=== PATIENT | female | born 1965 | race Caucasian/White ===

== ENCOUNTER 2023-04-12 10:17 | Inpatient (IN) ==
--- NOTE | 2023-03-28 12:41 | PAT Medication Instructions ---
Medication Instructions Date of Service March 28, 2023 Home Medications Cranberry 15,000 mg PO QAM acetaminophen 500 mg tablet 1,500 mg PO BID aspirin 81 mg capsule 81 mg PO QAM biotin 100 mg/gram oral powder 100 mg PO QAM evolocumab 140 mg/mL subcutaneous syringe (Repatha Syringe) 140 mg subcut MONTHLY gabapentin 300 mg capsule 300 mg PO TID mreajfqtieel-Sp-kgxh-minerals 18 mg-0.4 mg tablet 1 tab PO QAM pitavastatin calcium 2 mg tablet (Livalo) 2 mg PO QAM soy isoflavone-black cohosh root-magnolia bark 155 mg capsule (Estroven) 1 cap PO QAM tramadol 50 mg tablet 50 mg PO TID MEDICATION INSTRUCTIONS: ASK your prescriber and surgeon aspirin 81 mg capsule 81 mg PO QAM STOP taking 2 weeks before surgery soy isoflavone-black cohosh root-magnolia bark 155 mg capsule (Estroven) 1 cap PO QAM biotin 100 mg/gram oral powder 100 mg PO QAM Cranberry 15,000 mg PO QAM DO NOT take the morning of surgery qurdyjuvygcm-Dv-kumt-minerals 18 mg-0.4 mg tablet 1 tab PO QAM Take morning of surgery With a small sip of water, OTHERWISE NOTHING TO EAT OR DRINK AFTER MIDNIGHT: gabapentin 300 mg capsule 300 mg PO TID acetaminophen 500 mg tablet 1,500 mg PO BID tramadol 50 mg tablet 50 mg PO TID pitavastatin calcium 2 mg tablet (Livalo) 2 mg PO QAM Take evening before surgery gabapentin 300 mg capsule 300 mg PO TID acetaminophen 500 mg tablet 1,500 mg PO BID tramadol 50 mg tablet 50 mg PO TID Other Notes Check with prescriber for instructions: evolocumab 140 mg/mL subcutaneous syringe (Repatha Syringe) 140 mg subcut MONTHLY If you have any questions please call us at [phone] or [phone] or [phone] or [phone]
--- NOTE | 2023-03-31 14:54 | Anesthesiology Consultation ---
Date of Service March 31, 2023 Assessment & Plan (1) Encounter for pre-operative examination: - Infectious disease screening: Per assessment on 03/31/23: No known infectious disease contacts or current infectious disease symptoms. No noted Covid positive test result in past 90 days. - Check BSG AM DOS (preop labs note elevated glucose at 162. No reported hx of diabetes or prediabetes. Will recheck level DOS) Chart Review Chart Review: Acceptable Risk for Surgery and Patient NOT seen in Pre Admission Testing Teaching & Discussion Pre-Anesthesia Teaching/Discussion Notes: Instructed NPO after midnight before surgery,except medications with 15 cc of water. Medication instructions provided according to the PAT guidelines. History Surgery Operation Date: 04/14/23 10:05 Proposed Procedures p L3-L5 Decompression and Fusion, Spinal Cord Monitoring - Florentino Blackburn DO Height/Weight Height: 5 ft 2 in Weight: 82.5 kg Allergies Allergy/AdvReac Type Severity Reaction Status Date / Time doxycycline Allergy Intermediate Headache, Verified 03/29/23 11:42 joint swelling, lightheaded hydrocodone AdvReac Severe Nightmare, Verified 03/23/23 14:33 [From Lorcet (hydrocodone)] sick to stomach metronidazole [From Flagyl] AdvReac Mild Sick to Verified 03/29/23 11:42 stomach, body ache nitrofurantoin AdvReac Mild Sick to Verified 03/29/23 11:42 [From Macrobid] stomach, body ache Medications Home Medications Medication Instructions Recorded Confirmed Last Taken Cranberry 15,000 mg PO QAM 03/23/23 03/23/23 Unknown acetaminophen 500 mg tablet 1,500 mg PO BID 03/23/23 03/23/23 Unknown aspirin 81 mg capsule 81 mg PO QAM 03/23/23 03/23/23 Unknown biotin 100 mg/gram oral powder 100 mg PO QAM 03/23/23 03/23/23 Unknown evolocumab 140 mg/mL subcutaneous 140 mg subcut MONTHLY 03/23/23 03/23/23 Unknown syringe (Repatha Syringe) gabapentin 300 mg capsule 300 mg PO TID 03/23/23 03/23/23 Unknown dqfqbdrlzbul-Pb-ptlq-minerals 18 1 tab PO QAM 03/23/23 03/23/23 Unknown mg-0.4 mg tablet pitavastatin calcium 2 mg tablet 2 mg PO QAM 03/23/23 03/23/23 Unknown (Livalo) soy isoflavone-black cohosh 1 cap PO QAM 03/23/23 03/23/23 Unknown root-magnolia bark 155 mg capsule (Estroven) tramadol 50 mg tablet 50 mg PO TID 03/23/23 03/23/23 Unknown Past Medical History Medical History Chronic back pain Hyperlipidemia Solitary kidney, acquired Exercise / Class Metabolic Activity II 4-5 Yardwork/Stairs/Walk up hill Past Family History Family History Other No family history of adverse response to anesthesia Past Surgical History Surgical History History of bilateral breast reduction surgery 1984 History of carpal tunnel surgery of left wrist 2004 History of carpal tunnel surgery of right wrist 2011 History of cholecystectomy History of colonoscopy History of hysterectomy with bilateral oophorectomy History of kidney removal 2011 (donated left kidney to brother) History of ovarian cystectomy History of wisdom tooth extraction Past Anesthesia History No Hx of Anesthesia Complications and No Family Hx of Anesthesia Complications History of PONV No Hx of PONV and No Hx of Motion Sickness Social History Smoking Status: Former smoker Do You Dip or Chew Tobacco: No Smoking End Date: Quit 02/05/23 Hx Alcohol Use: Yes Alcohol type: beer alcohol intake frequency: a few times a month Hx Substance Use: No substance use type: does not use Review of Systems Patient denies chest pain, shortness of breath, dyspnea on exertion, fever, chills, cough, wheezing, palpitations. Physical Exam Vital Signs VITALS BP 151/83 P 81 TEMP 97.8 SP02 97%RA RESP 18 PHYSICAL Full cervical extension range of motion. Full TMJ range of motion. TMD 3 finger breaths Mallampati Score 2 Lungs: clear throughout to auscultation Cardiac: regular rate and rhythm, no murmurs noted Spine: normal Carotid arteries: negative bruit Extremities: no LE edema Lab Results Anesthesia Preop Results Results Anesthesia Widget: WBC 10.15 K/ul (4.8-10.8) 03/31/23 Hgb 12.6 g/dl (12.0-16.0) 03/31/23 Hct 36.8 % (37.0-47.0) L 03/31/23 Plt 265 K/uL (130-400) 03/31/23 Na 138 mmol/L (136-145) 03/31/23 K 4.0 mmol/L (3.5-5.1) 03/31/23 Cl 102 mmol/L (98-107) 03/31/23 CO2 30 mmol/L (21-32) 03/31/23 BUN 24 mg/dl (6-23) H 03/31/23 Creat 1.10 mg/dl (0.6-1.2) 03/31/23 Glucose Level 162 mg/dl (70-99(Fasting)) H 03/31/23 PT 9.9 Seconds (9.0-12.0) 03/31/23 PTT 26.5 Seconds (21.0-31.0) 03/31/23 INR 0.9 (0.9-1.1) 03/31/23 Urine Color Yellow 03/31/23 Urine Appearance Clear (Clear) 03/31/23 Urine pH 7.0 (4.5-7.5) 03/31/23 Urine Specific Weinert 1.008 (1.000-1.030) 03/31/23 Urine Protein Negative (Negative) 03/31/23 Urine Glucose (UA) Negative (Negative) 03/31/23 Urine Ketones Negative (Negative) 03/31/23 Urine Blood Negative (Negative) 03/31/23 Urine Nitrite Negative (Negative) 03/31/23 Urine Bilirubin Negative (Negative) 03/31/23 Urine Urobilinogen Negative (Negative) 03/31/23 Urine Leukocyte Esterase Negative (Negative) 03/31/23 Blood Type A Positive 03/31/23 Antibody Screen NEGATIVE 03/31/23 Testing Electrocardiogram Date: 03/31/23 NSr at 72bpm. LAD. Chest X-Ray Date: 03/31/23 FINDINGS: No lines and tubes are seen. Calcified aortic knob is seen. The lungs are clear. No evidence of pleural effusion or pneumothorax. IMPRESSION: No acute chest disease.
[~2023-04-12 10:17] MED LIST: ACETAMINOPHEN 500 MG TAB PO SCH; CeleBREX 200 MG CAP PO SCH; GABAPENTIN 600 MG DOSE PO SCH; LR 15ML/HR IV SCH; LR 60ML/HR IV SCH; ceFAZolin 2000MG 2,000 MG/15 ML SYR IV SCH
--- NOTE | 2023-04-12 11:30 | History & Physical Bridge Note ---
Date of Service April 12, 2023 History & Physical Bridge Note I have examined the patient, reviewed the History & Physical and in the interval since the performance of the History & Physical I have noted the following changes of clinical significance: no changes noted
--- NOTE | 2023-04-12 11:33 | History & Physical Report ---
Date of Service April 12, 2023 Assessment & Plan (1) Neurogenic claudication due to lumbar spinal stenosis: Plan: L3 L5 decompression and fusion History of Present Illness Chief Complaint: Back and bilateral leg pain Primary Care Provider: Rajinder Bethea This is a 57-year-old female who presents with chronic persistent back and leg pain after failing course of nonoperative care she is here for surgical invention. Allergies Allergy/AdvReac Type Severity Reaction Status Date / Time doxycycline Allergy Intermediate Headache, Verified 04/12/23 10:39 joint swelling, lightheaded hydrocodone AdvReac Severe Nightmare, Verified 04/12/23 10:39 [From Lorcet (hydrocodone)] sick to stomach metronidazole [From Flagyl] AdvReac Mild Sick to Verified 04/12/23 10:39 stomach, body ache nitrofurantoin AdvReac Mild Sick to Verified 04/12/23 10:39 [From Macrobid] stomach, body ache Home Medications Medication Instructions Recorded Confirmed Type Cranberry 15,000 mg PO QAM 03/23/23 04/12/23 History acetaminophen 500 mg tablet 1,500 mg PO BID 03/23/23 04/12/23 History aspirin 81 mg capsule 81 mg PO QAM 03/23/23 04/12/23 History biotin 100 mg/gram oral powder 100 mg PO QAM 03/23/23 04/12/23 History evolocumab 140 mg/mL subcutaneous 140 mg subcut MONTHLY 03/23/23 04/12/23 History syringe (Repatha Syringe) gabapentin 300 mg capsule 300 mg PO TID 03/23/23 04/12/23 History kantfpgcifsg-Wu-tark-minerals 18 1 tab PO QAM 03/23/23 04/12/23 History mg-0.4 mg tablet pitavastatin calcium 2 mg tablet 2 mg PO QAM 03/23/23 04/12/23 History (Livalo) soy isoflavone-black cohosh 1 cap PO QAM 03/23/23 04/12/23 History root-magnolia bark 155 mg capsule (Estroven) tramadol 50 mg tablet 50 mg PO TID 03/23/23 04/12/23 History Past Med/Surg History Medical History Chronic back pain Hyperlipidemia Solitary kidney, acquired Surgical History History of bilateral breast reduction surgery 1985 History of carpal tunnel surgery of left wrist 2004 History of carpal tunnel surgery of right wrist 2011 History of cholecystectomy History of colonoscopy History of hysterectomy with bilateral oophorectomy History of kidney removal 2011 (donated left kidney to brother) History of ovarian cystectomy History of wisdom tooth extraction Family History Other No family history of adverse response to anesthesia Social History Smoking Status: Former smoker Smoking End Date: Quit 02/05/23; Second Hand Exposure: No; Do You Dip or Chew Tobacco: No; Tobacco Cessation Education Requested by Patient: No Hx Alcohol Use: Yes Alcohol type: beer Hx Substance Use: No Preferred Language: Armenian Communication Ability: Effective Health Officer Required: No Beliefs That Will Affect Care: Protestant Protestant Beliefs: Denominational Current Living Situation: Significant Other Current Living Situation Comment: Lives with partner, Blas Other Information That Helps Us Care for You: No Feels Safe at Home: Yes Safety Concerns: Feels Safe At This Time Assistive Devices: Glasses Assistive Devices Comment: reading glasses Physical Exam Physical Exam: Patient is alert and oriented Heart regular rhythm Lungs clear Results & Data Results & Data Vital Signs (Past 12 Hours) Vital Signs Temp Pulse Resp BP Pulse Ox O2 Del Method 04/12/23 10:48 36.6 C 91 H 20 184/97 H 98 Room Air
[2023-04-12] MEDS ORDERED: BUPIVACAINE/EPINEPHRINE 0.25% 1:200,000 30 ML VIAL ONE (11:35)
[2023-04-12] MEDS ORDERED: ceFAZolin 330 MG/ML 1 GM VIAL ONE (11:35)
[2023-04-12] MEDS ORDERED: MIDAZOLAM HCL 1 MG/ML 2ML VIAL ONE (11:52)
[2023-04-12] MEDS ORDERED: fentaNYL citrate PF 100 MCG/2 ML VIAL ONE ×2 (11:52→13:44)
[2023-04-12] MEDS ORDERED: DEXAMETHASONE SOD INJ 4 MG/ML VIAL ONE (11:55)
[2023-04-12] MEDS ORDERED: LIDOCAINE 2% 2 ML VIAL/AMP(20MG/ML) INFIL ONE (11:55)
[2023-04-12] MEDS ORDERED: PROPOFOL IV EMULSION 10 MG/ML 20 ML VIAL IV ONE ×4 (11:55→13:08)
[2023-04-12] MEDS ORDERED: ONDANSETRON INJ 2 MG/ML 2 ML VIAL ONE (11:55)
[2023-04-12] MEDS ORDERED: FLOSEAL HEMOSTATIC MATRIX 10ML TOP ONE (12:34)
[2023-04-12] MEDS ORDERED: PHENYLEPHRINE HCL 10 MG/ML VIAL ONE (12:38)
[2023-04-12] MEDS ORDERED: SODIUM CHLORIDE 0.9% PF INJ 10 ML VIAL ONE (12:38)
[2023-04-12] MEDS ORDERED: ePHEDrine sulfate 50 MG/ML AMP ONE (12:38)
[2023-04-12] MEDS ORDERED: SUGAMMADEX SODIUM 200 MG/2 ML VIAL IV ONE (12:42)
--- NOTE | 2023-04-12 13:21 | Operative Report ---
Post Operative Report Pre & Post Diagnosis Operation Date: 04/12/23 12:05 Pre-Op Diagnosis: Neurogenic claudication due to lumbar spinal stenosis Lumbar spondylolisthesis L4-5 Post-Op Diagnosis: Same I identified the patient and participated in the time-out.: Yes Procedure Operation Date: 04/12/23 12:05 Actual Procedures #1 lumbar decompression bilateral medial facetectomies and foraminotomies L3-L4, L4-5. #2 posterior spinal fusion L4-5. #3 placement posterior instrumentation L4-5. #4 interbody fusion L4-5 per #5 placement of Spira 14 x 26 mm cage at L4- 5 #6 placement locally harvested morselized autograft and posterior gutters. #7 placement of I factor in the interbody space and posterior gutters. Surgeon Florentino Blackburn, DO Admitting Counselor Shala Sánchez Estimated Blood Loss 50 Findings See Below The patient is 5 foot 2 weighing over 81 kg with a BMI in excess of 32. The patient's body habitus did contribute to significant technical difficulty required deeper retractors longer instruments in order to perform her procedure. This at least 50% increased operative time. Specimens None Indications This is a 57-year-old female presents above-mentioned diagnosis after failed course of nonoperative care she is here for surgical invention Description of Procedure Patient was met with identified informed consent obtained. Patient was then taken to the operative suite underwent patient placed in a prone position the [place] table top Robert frame. All bony promises well-padded eyes inspected to ensure no external pressure placed upon the. This point the lumbar spine was prepped and draped in sterile fashion. Sharp dissection with the assistance of Bovie cautery to form down to and exposing the lamina transverse processes of L4-5 bilaterally. From a caudal cephalad fashion complete laminectomy of L4 partial laminectomy of L3 was performed including bilateral medial facetectomies and foraminotomies addressing severe spinal stenosis. Pedicle screws were then placed in L4-L5 bilaterally with assistance of fluoroscopy and the properly sized melvin placed. By way the transforaminal approach on the right complete discectomy of L4-5 was performed endplates corrected to subcortical bleeding bone and a 14 x 26 mm Spira cage with I factor tapped in position. The rods were then compressed locked into final position bilaterally. The transverse processes of L4-L5 burred to subcortical bleeding bone. I factor amount of the test and locally harvested morselized autograft was placed in the posterior gutters. 15 round ANJU drain inserted. The incision was then closed with 1 Vicryl to fascia 2-0 Vicryl subcutaneously and 4 Monocryl for final skin closure. Steri-Strips sterile dressings placed. Patient waken taken to PACU in stable condition. Please note spinal cord monitoring was utilized at the procedure no changes noted. Lastly Shala Sánchez was present at the entire surgery about the patient positioning complex portions of the surgery and final skin closure. I attest to the content of the Intraoperative Record and any orders documented therein. Any exceptions are noted below.
[2023-04-12] MEDS ORDERED: PROMETHAZINE HCL 12.5 MG in SODIUM CHLORIDE 0.9% 50 ML IV PRN ×2 (13:42→15:26)
[2023-04-12] MEDS ORDERED: ATROPINE SULFATE 0.1 MG/ML 10ML SYR IV PRN (13:42)
[2023-04-12] MEDS ORDERED: ONDANSETRON INJ 2 MG/ML 2 ML VIAL IV PRN ×2 (13:42→15:26)
[2023-04-12] MEDS ORDERED: FLUMAZENIL 0.1 MG/1 ML 10 ML VIAL IV PRN (13:42)
[2023-04-12] MEDS ORDERED: LABETALOL HCL IV 5 MG/ML 20ML IV PRN (13:42)
[2023-04-12] MEDS ORDERED: NALOXONE HCL 0.4 MG/1 ML VIAL/CARP IV PRN ×2 (13:42→15:26)
[2023-04-12] MEDS ORDERED: ePHEDrine sulfate 50 MG/ML AMP IV PRN (13:42)
[2023-04-12] MEDS: fentaNYL citrate PF 100 MCG/2 ML VIAL IV PRN ×3 (13:50→14:05)
[2023-04-12] MEDS ORDERED: HYDROmorphone INJ 0.5 MG/0.5 ML SYR IV PRN ×2 (14:31→15:26)
[2023-04-12] MEDS ORDERED: HYDROmorphone INJ 1 MG/ML SYRINGE ONE (14:32)
--- NOTE | 2023-04-12 14:49 | Fluoroscopy Report ---
FL lumbar spine 2-3V CLINICAL HISTORY: L4-L5 Decompression/Fusion COMPARISON STUDY: None. FLUOROSCOPY TIME: 16 seconds. Ka, r: 14.03 mGy FLUOROSCOPIC IMAGES: 2 FINDINGS: Fluoroscopy was provided during L4-L5 discectomy, posterior decompression and bilateral ped icle screw fusion. Hardware is intact. IMPRESSION: Fluoroscopy provided during L4-L5 discectomy, posterior decompression and bilateral pedi aubree screw fusion. ACT 112: Negative or not required by law. Electronically signed by: Sean Jones M.D. 04/12/2023 2:48 PM
--- NOTE | 2023-04-12 15:08 | Anesthesiology Progress Note ---
Date of Service April 12, 2023 Anesthesia Post Procedure Vital Signs Vital Signs: Temp Pulse Pulse Resp BP Pulse Ox O2 Del Method 04/12/23 14:50 36.5 C 105 H 20 150/85 H 95 Room Air 04/12/23 14:40 36.5 C 107 H 19 140/94 96 Room Air 04/12/23 14:30 36.5 C 103 H 18 140/94 97 Room Air 04/12/23 14:20 36.5 C 104 H 19 149/86 H 97 Room Air 04/12/23 14:10 108 H 16 150/76 H 99 Oxymask 04/12/23 14:00 106 H 16 154/86 H 100 Oxymask 04/12/23 13:50 110 H 20 164/85 H 99 Oxymask 04/12/23 13:40 116 H 8 L 164/89 H 98 Oxymask 04/12/23 13:33 36.6 C 116 H 16 145/76 H 100 Oxymask 04/12/23 10:48 36.6 C 91 H 20 184/97 H 98 Room Air O2 Flow Rate 04/12/23 14:50 04/12/23 14:40 04/12/23 14:30 04/12/23 14:20 04/12/23 14:10 3 04/12/23 14:00 3 04/12/23 13:50 3 04/12/23 13:40 3 04/12/23 13:33 5 04/12/23 10:48 Pain Intensity Right Leg: Pain Intensity: 3 Transfer of Care Handoff Completed per policy Notes Mental Status: alert / awake / arousable Patient Amnestic to Procedure: Yes Nausea / Vomiting: adequately controlled Pain: adequately controlled Airway Patency, RR, SpO2: stable & adequate BP & HR: stable & adequate Hydration State: stable & adequate Anesthetic Complications: no major complications apparent
[2023-04-12] MEDS ORDERED: DO NOT ADMINISTER PNEUMOCOCCAL VACCINE PRN (15:26)
[2023-04-12] MEDS ORDERED: LORazepam 2 MG/1 ML VIAL IV PRN (15:26)
[2023-04-12] MEDS ORDERED: bisacodyL 10 MG SUPP PR PRN (15:26)
[2023-04-12] MEDS ORDERED: METOCLOPRAMIDE HCL INJ 5 MG/ML 2 ML VIAL IV PRN (15:26)
[2023-04-12] MEDS ORDERED: ONDANSETRON 4 MG OD TAB PO PRN (15:26)
[2023-04-12] MEDS ORDERED: ACETAMINOPHEN 500 MG TAB PO PRN (15:26)
[2023-04-12] MEDS ORDERED: hydrOXYzine HCl 25 MG TAB PO PRN (15:26)
[2023-04-12] MEDS ORDERED: DO NOT ADMINISTER FLU VACCINE PRN (15:26)
[2023-04-12] MEDS ORDERED: HYDROmorphone INJ 1 MG/ML SYRINGE IV PRN (15:26)
[2023-04-12] MEDS ORDERED: ALUMINUM/MAGNESIUM SUSP 30 ML UDC PO PRN (15:26)
[2023-04-12] MEDS ORDERED: LORazepam 0.5 MG TAB PO PRN (15:26)
[2023-04-12] MEDS ORDERED: ACETAMINOPHEN 1,000 MG/100 ML VIAL IV PRN (15:26)
[2023-04-12] MEDS ORDERED: diphenhydrAMINE Capsule 25 MG CAP PO PRN (15:26)
[2023-04-12] MEDS ORDERED: SOD PHOSPHATE/SOD BIPHOSPHATE ENEMA 132 ML BTL PR PRN (15:26)
[2023-04-12] MEDS ORDERED: MAGNESIUM HYDROXIDE SUSP 30 ML UDC PO PRN (15:26)
[2023-04-12] MEDS ORDERED: FAMOTIDINE 20 MG TAB PO PRN (15:26)
[2023-04-12] MEDS: LACTATED RINGER'S 1,000 ML IV SCH ×2 (16:04→23:26)
[2023-04-12] MEDS: GABAPENTIN 300 MG CAP PO SCH ×2 (17:10→19:54)
[2023-04-12] MEDS: traMADol HCL 50 MG TABLET PO PRN (18:50)
[2023-04-12] MEDS: ceFAZolin 2000MG 2,000 MG/15 ML SYR IV SCH (19:54)
[2023-04-12] MEDS: DOCUSATE SODIUM/SENNA 50/8.6MG TAB PO SCH (19:54)
[2023-04-12] MEDS: oxyCODONE HCL IR 5 MG TAB (IMMEDIATE RELEASE) PO PRN (23:32)
[2023-04-13] MEDS: ceFAZolin 2000MG 2,000 MG/15 ML SYR IV SCH (05:01)
[2023-04-13] MEDS: POLYETHYLENE (MIRALAX) 17 GM PACK PO SCH ×4 (05:01→23:07)
[2023-04-13] MEDS: traMADol HCL 50 MG TABLET PO PRN (05:09)
[2023-04-13 06:48] LABS: Basophils # (auto) 0.02 K/uL (0.00-0.20); Basophils % (auto) 0.2 %; Hematocrit (blood only) 33.2 % (37.0-47.0); Immature Granulocytes # (auto) 0.05 K/uL (0.01-0.20); Immature Granulocytes % (auto) 0.4 %; Lymphocytes # (auto) 2.89 K/uL (1.20-3.40); Lymphocytes % (auto) 23.4 %; Mean Corpuscular Hemoglobin 30.6 pg (25.0-34.0); Mean Corpuscular Hgb Conc 33.1 g/dL (32.0-36.0); Mean Corpuscular Volume 92.5 fL (80.0-100.0); Mean Platelet Volume 10.4 fL (9.4-12.4); Monocytes # (auto) 0.51 K/uL (0.11-0.59); Monocytes % (auto) 4.1 %; Neutrophils % (auto) 71.9 %; Platelet Count 231 K/uL (130-400); RDW Coefficient of Variation 12.6 % (11.5-14.5); Red Blood Count 3.59 M/uL (4.20-5.40); White Blood Count 12.37 K/ul (4.8-10.8)
[2023-04-13 07:18] LABS: BUN Creatinine Ratio 15.7 (10-20); Calcium 9.3 mg/dl (8.6-10.3); Creatinine Clr Calc Pharmacy 55.4 ml/min; Est GFR (African American) 65.1 ml/min; Est GFR (Non-African American) 56.1 ml/min; Potassium 4.5 mmol/L (3.5-5.1)
[2023-04-13] MEDS: oxyCODONE HCL IR 5 MG TAB (IMMEDIATE RELEASE) PO PRN ×3 (08:29→19:45)
[2023-04-13] MEDS: dexAMETHasone 6 MG in SYRINGE 0 ML IV SCH (08:29)
--- NOTE | 2023-04-13 08:29 | Orthopedic Progress Note ---
Date of Service April 13, 2023 Assessment & Plan (1) Neurogenic claudication due to lumbar spinal stenosis: Plan: This time initiate physical therapy monitor her ANJU output hopefully discharge home next few days. Admission and Anticipated Discharge Date Admission Date: April 12, 2023 Subjective Back pain controlled leg pain markedly improved Physical Exam Physical Exam: Patient is now in bed. She is comfortable. Is constricted testing. Results & Data Vital Signs (Past 12 Hours) Vital Signs Temp Pulse Resp BP Pulse Ox O2 Del Method 04/13/23 07:26 37.1 C 72 15 116/69 97 Room Air 04/13/23 02:19 36.8 C 79 16 110/70 96 Room Air 04/12/23 23:06 36.8 C 102 H 18 127/74 98 Room Air Queries Orthopedic Spine Obesity: Yes
[2023-04-13] MEDS: ASPIRIN 81 MG ECTAB PO SCH (08:34)
[2023-04-13] MEDS: GABAPENTIN 300 MG CAP PO SCH ×3 (08:35→19:46)
[2023-04-13] MEDS: CEROVITE ADV FORMULA TAB PO SCH (08:36)
[2023-04-13] MEDS ORDERED: BIOTIN PO SCH (09:00)
--- NOTE | 2023-04-13 10:23 | Hospitalist Consultation ---
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 History of Present Illness Reason for Consultation: Medical management Requesting Physician: Dr. Blackburn Attending Physician: Florentino Blackburn, History of Present Illness This patient is a 57-year-old female with history of hyperlipidemia, solitary kidney due to donating left kidney to her brother, and lumbar radiculopathy here for lumbar decompression and fusion. Hospitalist service was consulted for postoperative medical management. She has some pain in her lower back but is otherwise doing very well. She is ambulating the halls, no CP, SOB, lightheadedness, headache, nausea. SHe is passing flatus, no BM yet, making urine, eating. Allergies Allergy/AdvReac Type Severity Reaction Status Date / Time doxycycline Allergy Intermediate Headache, Verified 04/12/23 10:39 joint swelling, lightheaded hydrocodone AdvReac Severe Nightmare, Verified 04/12/23 10:39 [From Lorcet (hydrocodone)] sick to stomach metronidazole [From Flagyl] AdvReac Mild Sick to Verified 04/12/23 10:39 stomach, body ache nitrofurantoin AdvReac Mild Sick to Verified 04/12/23 10:39 [From Macrobid] stomach, body ache Home Medications Medication Instructions Recorded Confirmed Type Cranberry 15,000 mg PO QAM 03/23/23 04/12/23 History acetaminophen 500 mg tablet 1,500 mg PO BID 03/23/23 04/12/23 History aspirin 81 mg capsule 81 mg PO QAM 03/23/23 04/12/23 History biotin 100 mg/gram oral powder 100 mg PO QAM 03/23/23 04/12/23 History evolocumab 140 mg/mL subcutaneous 140 mg subcut MONTHLY 03/23/23 04/12/23 History syringe (Repatha Syringe) gabapentin 300 mg capsule 300 mg PO TID 03/23/23 04/12/23 History iyrxnlzhtpfg-Vk-sgxg-minerals 18 1 tab PO QAM 03/23/23 04/12/23 History mg-0.4 mg tablet pitavastatin calcium 2 mg tablet 2 mg PO QAM 03/23/23 04/12/23 History (Livalo) soy isoflavone-black cohosh 1 cap PO QAM 03/23/23 04/12/23 History root-magnolia bark 155 mg capsule (Estroven) tramadol 50 mg tablet 50 mg PO TID 03/23/23 04/12/23 History oxycodone 5 mg tablet 5 mg PO Q6H PRN pain #30 tabs 04/13/23 Rx tramadol 50 mg tablet 50 mg PO Q6H PRN pain, moderate 04/13/23 Rx #30 tabs Patient History Medical History Chronic back pain CKD (chronic kidney disease) stage 3, GFR 30-59 ml/min Hyperlipidemia Menopausal and perimenopausal disorder Solitary kidney, acquired Surgical History History of bilateral breast reduction surgery 1985 History of carpal tunnel surgery of left wrist 2004 History of carpal tunnel surgery of right wrist 2011 History of cholecystectomy History of colonoscopy History of hysterectomy with bilateral oophorectomy History of kidney removal 2011 (donated left kidney to brother) History of ovarian cystectomy History of wisdom tooth extraction Family History Other No family history of adverse response to anesthesia Social History Smoking Status: Former smoker Smoking End Date: Quit 02/05/23; Second Hand Exposure: No; Do You Dip or Chew Tobacco: No; Tobacco Cessation Education Requested by Patient: No Hx Alcohol Use: Yes Alcohol type: beer Hx Substance Use: No Preferred Language: Yemeni Communication Ability: Effective Cad Librarian Required: No Beliefs That Will Affect Care: Spiritism Spiritism Beliefs: Mormon Current Living Situation: Significant Other Current Living Situation Comment: Lives with partner, Blas Other Information That Helps Us Care for You: No Feels Safe at Home: Yes Safety Concerns: Feels Safe At This Time Assistive Devices: Walker Assistive Devices Comment: reading glasses Review of Systems Review of Systems: All systems reviewed & are unremarkable except as noted in HPI & below Physical Exam Constitutional: WD/WN, vitals as above Eyes: PERRL, conjunctivae normal, anicteric sclerae ENMT: external ear and nose normal, oropharynx normal Neck: trachea midline, no thyromegaly Respiratory: normal respiratory effort, lungs clear to auscultation Cardiovascular: RRR, no murmur, no edema Chest (Breasts): Chest: normal inspection of chest Gastrointestinal (Abdomen): normal bowel sounds, soft, nontender, no hepatosplenomegaly Musculoskeletal: Extremities: extremities normal to inspection; no cyanosis and no clubbing Skin: no rashes, warm and dry Neurologic: moves all extremities and awake; no focal motor deficits Psychiatric: A+Ox3, euthymic affect Lymphatic: no lymphedema Results & Data Results & Data Vital Signs (Past 12 Hours) Vital Signs Temp Pulse Resp BP Pulse Ox O2 Del Method 04/13/23 07:26 37.1 C 72 15 116/69 97 Room Air 04/13/23 02:19 36.8 C 79 16 110/70 96 Room Air 04/12/23 23:06 36.8 C 102 H 18 127/74 98 Room Air Laboratory Results CBC, BMP, UA preop reviewed PG Care Time/CCT Total # of Minutes Spent Total Time Spent with Patient: Total time spent is greater than 50% in coordination of care (as documented) at patient's floor/unit and/or counseling patient: Coding Level of Care Code 30493 IN/OBS CONSULT LVL 3,45M Diagnoses Neurogenic claudication due to lumbar spinal stenosis M48.062 Hyperlipidemia E78.5 Solitary kidney, acquired Z90.5 Menopausal and perimenopausal disorder N95.9 CKD (chronic kidney disease) stage 3, GFR 30-59 ml/min N18.30
[2023-04-13] MEDS: DOCUSATE SODIUM/SENNA 50/8.6MG TAB PO SCH (19:45)
[2023-04-14] MEDS: POLYETHYLENE (MIRALAX) 17 GM PACK PO SCH (05:31)
[2023-04-14] MEDS: oxyCODONE HCL IR 5 MG TAB (IMMEDIATE RELEASE) PO PRN ×2 (05:31→10:47)
[2023-04-14 07:36] VITALS: BP 178/82; PULSE 86; RESP 18; TEMP 98.2; O2SAT 96
[2023-04-14] MEDS: GABAPENTIN 300 MG CAP PO SCH (08:10)
[2023-04-14] MEDS: CEROVITE ADV FORMULA TAB PO SCH (08:10)
[2023-04-14] MEDS: ASPIRIN 81 MG ECTAB PO SCH (08:10)
[2023-04-14] MEDS: dexAMETHasone 6 MG in SYRINGE 0 ML IV SCH (08:11)
[2023-04-14 09:08] LABS: Hematocrit (blood only) 34.1 % (37.0-47.0); Hemoglobin 11.4 g/dl (12.0-16.0); Mean Corpuscular Hemoglobin 31.1 pg (25.0-34.0); Mean Corpuscular Hgb Conc 33.4 g/dL (32.0-36.0); Mean Corpuscular Volume 93.2 fL (80.0-100.0); Mean Platelet Volume 10.4 fL (9.4-12.4); Platelet Count 248 K/uL (130-400); RDW Coefficient of Variation 12.9 % (11.5-14.5); Red Blood Count 3.66 M/uL (4.20-5.40); White Blood Count 15.42 K/ul (4.8-10.8)
[2023-04-14 09:43] LABS: BUN Creatinine Ratio 22.1 (10-20); Calcium 9.7 mg/dl (8.6-10.3); Est GFR (African American) 56.2 ml/min; Est GFR (Non-African American) 48.5 ml/min; Potassium 4.2 mmol/L (3.5-5.1)
[2023-04-14 09:50] LABS: Basophils # (auto) 0.04 K/uL (0.00-0.20); Basophils % (auto) 0.3 %; Eosinophils # (auto) 0.02 K/uL (0.00-0.50); Eosinophils % (auto) 0.1 %; Immature Granulocytes % (auto) 0.6 %; Lymphocytes # (auto) 5.92 K/uL (1.20-3.40); Lymphocytes % (auto) 38.4 %; Monocytes % (auto) 5.8 %; Neutrophils # (auto) 8.44 K/uL (1.40-6.50); Neutrophils % (auto) 54.8 %; RBC Morphology Unremarkable
--- NOTE | 2023-04-14 09:55 | Discharge Summary ---
Date of Service April 14, 2023 Admission HPI Per Admitting Provider This is a 57-year-old female who presents with chronic persistent back and leg pain after failing course of nonoperative care she is here for surgical invention. Principal Diagnosis Lumbar spinal stenosis with spondylolisthesis and neurogenic claudication Discharge Data Allergies Allergy/AdvReac Type Severity Reaction Status Date / Time doxycycline Allergy Intermediate Headache, Verified 04/12/23 10:39 joint swelling, lightheaded hydrocodone AdvReac Severe Nightmare, Verified 04/12/23 10:39 [From Lorcet (hydrocodone)] sick to stomach metronidazole [From Flagyl] AdvReac Mild Sick to Verified 04/12/23 10:39 stomach, body ache nitrofurantoin AdvReac Mild Sick to Verified 04/12/23 10:39 [From Macrobid] stomach, body ache Consultations 04/12/23 15:26 Consult Hospitalist Routine Procedures Performed Operation Date: 04/12/23 12:05 Actual Procedures p L4-L5 Decompression and Fusion, Spinal Cord Monitoring(Not Applicable) - Florentino Blackburn DO Ordered Studies 04/12/23 [place] lumbar spine 2-3V Routine Hospital Course (1) Neurogenic claudication due to lumbar spinal stenosis: Patient with lumbar decompression fusion tolerated as well as to the orthopedic floor. Postoperatively he progressed appropriately. ANJU drain decreasing probably. Excellent strength testing. Ambulating well. Pain well controlled. Separately discharged home. Discharge orders instructions found in chart for further review. Total Time Total Time Spent Total Time Spent (In Minutes): 20 minutes Discharge Plan Discharge Items Patient Disposition: Home - Self-Care Reason For Visit: Lumbar Region Intervertebral Disc Disorders with Discharge Diagnosis: Lumbar spinal stenosis with spondylolisthesis and neurogenic claudication Activity: As commented below Non-emergency contact: Primary Care Provider Call non-emergency contact if: you have any medication questions Follow-up/Referrals: Rajinder Bethea M.D. [Primary Care Provider] - Diet: Regular Addtl Attending Provider Instructions: ACTIVITY RECOMMENDATIONS: SELF CARE INSTRUCTIONS AFTER THORACIC/LUMBAR FUSIONS 1. You may walk to your tolerance. It is good exercise for your legs and back. Expect some back and intermittent leg aches and pains. 2. You may perform "counter-top" level activities (make a sandwich, heidy with a project, etc.). 3. No bending or lifting of more than 10 pounds or back twisting of any nature (roll like a log when turning in bed). 4. You may ride in a car for 20-30 minutes at a time. No driving until after your first visit with your doctor. 5. Frequent changes of position and restricting sitting to 30 minutes at a time will help limit the amount of back spasms and stiffness you may experience. 6. You may discontinue the use of ambulatory aids (cane, crutches, etc.) once your strength and confidence allow. 7. You may home health administrator the shower and let water strike your incision when you arrive home at least once daily. Do not take a tub bath, sit in a hot tub or go into a swimming pool until after your first recheck in the office. SPECIAL CARE INSTRUCTIONS: VERY IMPORTANT TO READ AND REVIEW A. Your surgical incision has been closed with a cosmetic suture under the skin that will dissolve in about 6 weeks. In 14 days, you can use a pair of clean scissors and cut the suture that is left outside of the skin at the ends of your incision. 1. The small skin tapes can be removed 7 days after surgery if they have not fallen off by that point. 2. You may keep the wound open to air as much as possible to promote healing after post-op day number 5 unless told otherwise by your doctor. 3. If you think the wound looks like it is becoming infected (redness or worsening drainage) and/or you are experiencing fever, chill or worsening back pain and muscle spasms, contact the office so that we may evaluate you as soon as possible. B. Complications are uncommon, but please contact us if you have any signs or symptoms of: 1. wound infection (fever higher than 102.5 degrees F, redness, separation of wound, drainage, or increasing pain from the incision) 2. blood clots in legs (pain, swelling, redness and warmth in legs) 3. urinary tract infection (fever higher than 102.5 degrees F, burning upon urination or increased frequency of urination) 4. nerve problems (inability to walk on your toes or heels, numbness, loss of bowel or bladder control) 5. any other symptoms that concern you C. Please call the office at if you have any concerns or questions about your operation or recovery. D. No smoking! Smoking drastically decreases the chance of a solid fusion. E. Do not take any anti-inflammatory medications (Indocin, Advil, Motrin, Aspirin, Naprosyn, etc.) as these may inhibit the chance of a solid fusion. Tylenol is okay to take for pain. MANAGING PAIN AFTER SPINAL SURGERY 1. Narcotic medication is intended for short-term use and will be provided for surgical pain. Surgical pain usually lasts for a period of 4-6 weeks. Narcotic medication includes Percocet, Vicodin, Darvocet, Tylenol #3 or Lortab. 2. Longer-term pain is more appropriately treated with non-narcotic medication such as Tylenol ES. 3. Muscle spasm is not appropriately treated with narcotics. Muscle relaxers such as Soma, Flexeril or Skelaxin can be used along with Tylenol ES. 4. Remember that we all live with some "aches and pains". This is not unusual or uncommon after an injury or as we get older. a. Back pain is expected and may include muscle spasms for 4 to 6 weeks after surgery. The pain should gradually improve. If the pain worsens for no apparent reason, please contact the office. b. Intermittent leg pain may also be experienced and should not be concerned about unless it worsens for no apparent reason. If so, please contact the office. 5. We will provide appropriate medication within the normal guidelines of their prescribed use. We will also be very cautious and aware of potential abuse and extended duration of patients' medication needs. a. Pain medications are for your comfort and to assist with sleep and rest so that the tissue can heal. They are not provided in order to return to normal activity and should not be used through the day. To do so or worsening pain at night can result from ongoing tissue damage and development of tolerance to the prescribed medicine. 6. Please allow 2-3 days to process refills. Prescriptions will not be mailed but must be picked up at the office. FOLLOW UP VISIT: Keep your scheduled follow-up appointment. Any questions, please call the office at . Pending Studies at Discharge: No Stand-Alone Forms: [employer], Smoking Cessation Medications and DC Order Prescriptions: New tramadol 50 mg tablet 50 mg PO Q6H PRN (Reason: pain, moderate) Qty: 30 0RF oxycodone 5 mg tablet 5 mg PO Q6H PRN (Reason: pain) Qty: 30 0RF Continued [id number]-Sk-fgkj-minerals 18-0.4 mg Tablet 1 tab PO QAM Livalo 2 mg Tablet 2 mg PO QAM [place] 155 mg Capsule 1 cap PO QAM Repatha Syringe 140 mg/mL Syringe 140 mg SUBCUT MONTHLY aspirin 81 mg Capsule 81 mg PO QAM Cranberry 15,000 mg PO QAM Patient Comments: per pt dose is 15,000mg tramadol 50 mg Tablet 50 mg PO TID acetaminophen 500 mg Tablet 1,500 mg PO BID gabapentin 300 mg Capsule 300 mg PO TID biotin 100 mg/gram Powder 100 mg PO QAM Patient Comments: pt states puts powder in coffee every am Discharge Orders: Discharge Order (Routine); Ordered 04/14/23 Ordered By: Florentino Blackburn Admission Data Admit Date/Time: 04/12/23 13:24 Attending Provider: Florentino Blackburn Admit Provider: Florentino Blackburn Primary Care Provider: Rajinder Bethea Other Providers: Arnel Holbrook ; Marichuy Gonzáles
== END 2023-04-14 12:23 | disposition home or self-care (01) | DRG 455 ==
LOC: ASU 10:17 → 3E 13:24